=== PATIENT | female | born 1970 | race American Indian/Alaskan Native ===

== ENCOUNTER 2017-11-16 09:06 | Emergency (ER) | payer OTHER ==
[2017-11-16 09:23] VITALS: BMI 44.9
--- NOTE | 2017-11-16 10:16 | C.PDOC ---
History Of Present Illness 46 year old female present to ED complaining of right elbow pain due to an injury that occurred 3 days. Patient reports she is right arm dominant and the injury was sustained only to her right elbow. Patient offers no other medical complaints at this time. Time Seen by Provider: 11/16/17 09:33 Chief Complaint (Nursing): Upper Extremity Problem/Injury History Per: Patient History/Exam Limitations: no limitations Onset/Duration Of Symptoms: Days Current Symptoms Are (Timing): Still Present Quality: "Pain" (elbow pain) Recent travel outside of the [place]: No Past Medical History Reviewed: Historical Data, Nursing Documentation, Vital Signs Vital Signs: Last Vital Signs Temp 97.7 F 11/16/17 10:27 Pulse 76 11/16/17 10:27 Resp 18 11/16/17 10:27 BP 109/74 11/16/17 10:27 Pulse Ox 99 11/16/17 10:27 - Medical History PMH: Gastritis, HTN Surgical History: Cholecystectomy - [facility] Procedures INJECT/INFUSE NEC (02/12/05) Family History: States: No Known Family Hx - Social History Hx Alcohol Use: Yes Hx Substance Use: No - Immunization History Hx Tetanus Toxoid Vaccination: No Hx Influenza Vaccination: No Hx Pneumococcal Vaccination: No Review Of Systems Except As Marked, All Systems Reviewed And Found Negative. Musculoskeletal: Positive for: Other (right elbow pain) Physical Exam - Physical Exam Appears: Non-toxic, No Acute Distress Skin: Warm, Dry Head: Atraumatic, Normacephalic Eye(s): bilateral: Normal Inspection, PERRL, EOMI Nose: Normal Oral Mucosa: Moist Chest: Symmetrical Cardiovascular: Rhythm Regular, No Murmur Respiratory: Normal Breath Sounds, No Rales, No Rhonchi, No Wheezing Gastrointestinal/Abdominal: Normal Exam, Soft, No Tenderness Extremity: Normal ROM, Tenderness (right medial elbow), No Swelling Neurological/Psych: Oriented x3, Normal Speech Gait: Steady ED Course And Treatment O2 Sat by Pulse Oximetry: 97 (RA) Pulse Ox Interpretation: Normal - Other Rad X-ray right elbow X-Ray: Interpreted by Me, Viewed By Me Interpretation: Preliminary reading illustrates no fracture. Medical Decision Making Medical Decision Making: Impression: elbow contusion. Plan: * Ibuprofen 600 mg PO * X-ray right elbow Patient was discharged home and advised to follow up with PMD in 2 days. Disposition Counseled Patient/Family Regarding: Studies Performed, Diagnosis, Need For Followup, Rx Given - Disposition Referrals: [facility] [Outside] Disposition: HOME/ ROUTINE Disposition Time: 10:17 Condition: STABLE Additional Instructions: follow up with your doctor within 2 days ge to make an appointment rest, ice, elevate motrin as needed for pain return to ER if symptoms worsens or progress Instructions: Taking Care of Bruises, Contusion (DC) Forms: General Discharge Instructions, [facility] (Malaysian), Work Excuse - Clinical Impression Clinical Impression: Contusion - Scribe Statement The provider has reviewed the documentation as recorded by the Mo Alarcon Robert Provider Attestation: All medical record entries made by the Mo were at my direction and personally dictated by me. I have reviewed the chart and agree that the record accurately reflects my personal performance of the history, physical exam, medical decision making, and the department course for this patient. I have also personally directed, reviewed, and agree with the discharge instructions and disposition.
[2017-11-16 10:28] VITALS: BP 109/74; PULSE 76; RESP 18; TEMP 97.7
[2017-11-16 10:38] VITALS: O2SAT 97
--- NOTE | 2017-11-16 14:34 | RAD ---
Date of service: 11/16/2017 PROCEDURE: Radiographs of the right elbow. HISTORY: rigth elbow injury COMPARISON: No prior. FINDINGS: BONES: No fracture. Proximal anterior ulnar coronoid spurring present JOINTS: Mild anterior ulna humeral osteoarthrosis SOFT TISSUES: Normal. JOINT EFFUSION: None. OTHER FINDINGS: None. IMPRESSION: No fracture or subluxation. Arthrosis
== END 2017-11-16 10:30 | disposition home or self-care (01) ==
LOC: C.ER 09:06
DX: S50.01XA Contusion of right elbow, initial encounter (principal); X58.XXXA Exposure to other specified factors, initial encounter

== ENCOUNTER 2018-02-01 00:12 | Emergency (ER) | payer OTHER ==
[2018-02-01 00:12] VITALS: BMI 44.9
--- NOTE | 2018-02-01 00:25 | C.PDOC ---
History Of Present Illness 47 y/o female presents to the ED complaining of left lower and upper quandrant pain, onset 1 week ago. Otherwise denies associated nausea, vomiting, diarrhea, fever, or chills. She notes the pain intensified over the last couple days, further worsened yesterday. Patient states some pain is also radiating to the back. She is otherwise tolerating PO. Time Seen by Provider: 02/01/18 00:24 Chief Complaint (Nursing): Abdominal Pain History Per: Patient History/Exam Limitations: no limitations Onset/Duration Of Symptoms: Days Current Symptoms Are (Timing): Worse Severity: Mild Pain Scale Rating Of: 4 Location Of Pain/Discomfort: LUQ, LLQ Radiation Of Pain To:: Back Quality Of Discomfort: "Pain" Associated Symptoms: denies: Fever, Chills, Nausea, Vomiting Alleviating Factors: None Recent travel outside of the [place]: No Past Medical History Reviewed: Historical Data, Nursing Documentation, Vital Signs - Medical History PMH: Gastritis, HTN Surgical History: Cholecystectomy - [facility] Procedures INJECT/INFUSE NEC (02/12/05) Family History: States: Unknown Family Hx - Social History Hx Alcohol Use: Yes Hx Substance Use: No - Immunization History Hx Tetanus Toxoid Vaccination: No Hx Influenza Vaccination: No Hx Pneumococcal Vaccination: No Review Of Systems Constitutional: Negative for: Fever, Chills Respiratory: Negative for: Shortness of Breath Gastrointestinal: Positive for: Abdominal Pain. Negative for: Nausea, Vomiting, Diarrhea, Constipation, Hematochezia Genitourinary: Negative for: Dysuria, Frequency, Hematuria Musculoskeletal: Positive for: Back Pain Neurological: Negative for: Weakness, Numbness Physical Exam - Physical Exam Appears: Non-toxic, No Acute Distress Skin: Warm, Dry Head: Normacephalic Eye(s): bilateral: Normal Inspection Oral Mucosa: Moist Neck: Trachea Midline, Supple Chest: Symmetrical Cardiovascular: Rhythm Regular Respiratory: No Rales, No Rhonchi, No Wheezing Gastrointestinal/Abdominal: Soft, Tenderness (to the LLQ), No Guarding, No Rebound Back: No CVA Tenderness, No Vertebral Tenderness Extremity: Bilateral: Atraumatic, Normal Color And Temperature, Normal ROM Pulses: Left Dorsalis Pedis: Normal, Right Dorsalis Pedis: Normal Neurological/Psych: Oriented x3 ED Course And Treatment - Laboratory Results Result Diagrams: 02/01/18 01:37 02/01/18 01:37 O2 Sat by Pulse Oximetry: 96 (RA) Pulse Ox Interpretation: Normal - CT Scan/US CT abd/pelvis Other Rad Studies (CT/US): Read By Radiologist, Radiology Report Reviewed CT/US Interpretation: Name:TREY YOUNGBLOOD Exam Date:Feb 01, 2018 2:49:49 AM EDT. Modality Type:CT\\SR. Description:CT - ABDOMEN AND PELVIS WITH CORONAL AND SAGITTAL MPRS. Gender:F Laterality:Not applicable. :71 Referring Physician:Alexandra Mcelroy). CT SCAN OF THE ABDOMEN AND PELVIS WITH CONTRAST. CLINICAL HISTORY: Abdominal pain. TECHNIQUE: Multiple axial and coronal CT images were obtained through the abdomen and pelvis after administration of intravenous contrast material. COMMENTS: The liver is of uniform attenuation without mass or defect. There is no intra or extrahepatic biliary ductal dilatation. The spleen is normal. The gallbladder is within normal limits. The pancreas is of normal contour and attenuation characteristics. There is no evidence of adrenal mass. Both kidneys demonstrate prompt and equal nephrograms. The kidneys are normal in size, shape and configuration. There is no evidence of renal or ureteral mass. No renal or ureteral calculi are identified. There is no hydroureter or hydronephrosis. No evidence for appendicitis. There is no bowel wall thickening. No evidence for small or large bowel obstruction. There is no evidence of abdominal ascites or lymphadenopathy. Uncomplicated colonic diverticulosis. There is no evidence of intrinsic or extrinsic bladder mass. There is no pelvic ascites or lymphadenopathy. 4.9 cm partially hyperdense lesion of the left ovary. Images of the lung bases show no evidence of pleural or parenchymal mass. There are no pleural effusions. The bony structures are free of lytic or blastic lesions. IMPRESSION: Left ovarian endometrioma versus hemorrhagic cyst. No evidence of acute abdominal or pelvic pathology. Progress Note: Blood work and urine sent to the lab for analysis. Administered IV fluids, pepcid, morphine, and zofran. Pending CT abdomen/pelvis with IV contrast. Informed patient of CT findings. Reevaluation Time: 04:03 Reassessment Condition: Improved Disposition Counseled Patient/Family Regarding: Studies Performed, Diagnosis, Need For Followup, Rx Given - Disposition Referrals: Len Martinez MD [Staff Provider] - Disposition: HOME/ ROUTINE Disposition Time: 00:24 Condition: FAIR Additional Instructions: Please return if symptoms recur and also follow up with your [employer] Prescriptions: traMADol [Ultram] 50 mg PO TID PRN #15 tab PRN Reason: Pain, Severe (8-10) Instructions: Endometriosis (DC) Forms: [facility] (Sinhala) - Clinical Impression Clinical Impression: Endometrioma of ovary, Hemorrhagic cyst of left ovary - Scribe Statement The provider has reviewed the documentation as recorded by the Scribe (Haylie Muir) Provider Attestation: All medical record entries made by the Scribe were at my direction and personally dictated by me. I have reviewed the chart and agree that the record accurately reflects my personal performance of the history, physical exam, medical decision making, and the department course for this patient. I have also personally directed, reviewed, and agree with the discharge instructions and disposition.
[2018-02-01] MEDS ORDERED: Sodium Chloride 0.9% 1,000 ML IV ONE (01:34)
[2018-02-01 01:40] LABS: BASO # 0.1 K/uL (0.0-0.2); BASO % 0.8 % (0.0-2.0); EOS # 0.1 K/uL (0.0-0.7); EOS % 1.9 % (0.0-4.0); HEMOGLOBIN 12.4 g/dL (11.0-16.0); LYMPH # 3.2 K/uL (1.0-4.3); LYMPH % 44.1 % (20.0-40.0); MEAN CELL VOLUME 89.2 fL (81.0-99.0); MEAN CORPUSCULAR HEMOGLOBIN 31.1 pg (27.0-31.0); MEAN CORPUSCULAR HGB CONC 34.9 g/dL (33.0-37.0); MEAN PLATELET VOLUME 8.1 fL (7.2-11.7); MONO # 0.6 K/uL (0.0-0.8); MONO % 7.8 % (0.0-10.0); NEUT # 3.3 K/uL (1.8-7.0); NEUT % 45.4 % (50.0-75.0); NRBC % 0.1 % (0.0-2.0); RBC 3.97 Mil/uL (3.80-5.20); RED CELL DISTRIBUTION WIDTH 12.8 % (11.5-14.5); WHITE BLOOD COUNT 7.3 K/uL (4.8-10.8)
[2018-02-01] MEDS ORDERED: Sodium Chloride 0.9% 1,000 ML ONE (01:42)
[2018-02-01 01:46] LABS: SQUAMOUS EPITHIAL 22 /hpf (0-5); URINE BACTERIA FEW (<OCC); URINE BILIRUBIN 1+ (NEGATIVE); URINE BLOOD NEGATIVE (NEGATIVE); URINE CLARITY Hazy (Clear); URINE COLOR Amber (YELLOW); URINE GLUCOSE (UA) NORMAL (Normal); URINE LEUKOCYTE ESTERASE 1+ Leu/uL (Negative); URINE PROTEIN 2+ mg/dL (NEGATIVE)
[2018-02-01 01:52] LABS: INR 1.2; PROTHROMBIN TIME 12.9 SECONDS (9.7-12.2)
[2018-02-01 02:06] LABS: ALB/GLOB RATIO 1.2 (1.0-2.1); ALBUMIN 4.2 g/dL (3.5-5.0); ALT/SGPT 28 U/L (9-52); AST/SGOT 25 U/L (14-36); BLOOD UREA NITROGEN 16 mg/dL (7-17); CALCIUM 9.1 mg/dl (8.6-10.4); GFR NON-AFRICAN AMERICAN > 60; LIPASE 99 U/L (23-300)
[2018-02-01] MEDS ORDERED: Iodixanol 320 MG/ML 100 ML BOTTLE IV ONE (02:31)
[2018-02-01] MEDS ORDERED: Piperacillin/Tazobact 3.375 gm 100 ML IVPB STA (02:48)
[2018-02-01] MEDS ORDERED: Piperacillin/Tazobact 3.375 gm 100 ML IVPB ONE (03:14)
[2018-02-01 04:19] VITALS: BP 151/92; PULSE 81; RESP 18; TEMP 97.8; O2SAT 98
--- NOTE | 2018-02-01 10:51 | CT ---
Date of service: 02/01/2018 PROCEDURE: CT Abdomen and Pelvis with contrast HISTORY: llq abd pain, hx of partial hysterectomy COMPARISON: None available. TECHNIQUE: Contrast dose: 100 mL Visipaque 320 IV Radiation dose: Total exam DLP = 1194.61 mGy-cm. This CT exam was performed using one or more of the following dose reduction techniques: Automated exposure control, adjustment of the mA and/or kV according to patient size, and/or use of iterative reconstruction technique. FINDINGS: LOWER THORAX: No visible consolidation, pleural effusion, or pneumothorax. LIVER: Hypoattenuation of the liver compatible with hepatic steatosis. GALLBLADDER AND BILE DUCTS: Unremarkable. PANCREAS: Unremarkable. SPLEEN: Unremarkable. ADRENALS: Unremarkable. KIDNEYS AND URETERS: The kidneys enhance symmetrically. No hydronephrosis or obstructing calculus identified. VASCULATURE: No aortic aneurysm. No atherosclerotic calcification or mural plaque present. BOWEL: Stomach is nondistended. Lack of oral contrast limits evaluation for bowel pathology. Bowel loops appear within normal limits of caliber without evidence of obstruction. Diverticulosis without CT evidence of acute diverticulitis. APPENDIX: The appendix appears within normal limits of caliber. No secondary signs of acute appendicitis. PERITONEUM: No significant free fluid. No definite free air. LYMPH NODES: No bulky adenopathy identified. BLADDER: Unremarkable. REPRODUCTIVE: 4.0 x 2.6 cm left adnexal hypodense mass possibly with fluid level, likely ovarian in etiology. BONES: Degenerative changes. OTHER FINDINGS: None. IMPRESSION: Indeterminate 4.0 x 2.6 cm left adnexal hypodense mass possibly with fluid level, likely ovarian in etiology. Recommend pelvic ultrasound for further characterization. Diverticulosis without CT evidence of acute diverticulitis. Hypoattenuation of the liver compatible with hepatic steatosis. Study marked for PA review.
== END 2018-02-01 04:26 | disposition home or self-care (01) ==
LOC: C.ER 00:12
DX: N80.1 Endometriosis of ovary (principal); N83.202 Unspecified ovarian cyst, left side; N39.0 Urinary tract infection, site not specified
CPT/HCPCS: 74177; 80053; 81001; 83690; 85025; 85610; 85730; 96361; 96365; 96375; 99285; J2270; J2405; J2543; J7030; Q9967